=== PATIENT | male | born 2000 | race Caucasian/White ===

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

== ENCOUNTER 2018-05-31 04:33 | Emergency (ER) | payer OTHER ==
[~2018-05-31] VITALS: Wt 71.0 kg
[~2018-05-31 04:33] MED LIST: LEVE250T66 PO
[2018-05-31] MEDS ORDERED: LEVETIRACETAM 1000 MG (PMX) 100 ML IVPB STA (04:57)
[2018-05-31] MEDS ORDERED: LEVE750T70 PO (05:01)
--- NOTE | 2018-05-31 05:01 | ERD ---
ER Documentation Chief Complaint Chief Complaint bib ra from home for seizure for 2 min, left side head impact, witnessed, HPI This is a 18-year-old male who is had his third seizure and is not taking any medication. He was supposed to be but is not. The patient had a witnessed seizure today by a friend at home just prior to arrival. The patient was found on the floor. The patient had rolled out of bed and had a 2-minute tonic seizure. After the seizure the patient was postictal. The patient says he remembers going to bed and then waking up in the ambulance. Denies any symptoms at this time such as headache neck pain shoulder pain back pain or focal neurological complaints. Patient states he has been under a lot of stress lately and only slept a few hours last night ROS All systems reviewed and are negative except as per history of present illness. Medications Home Meds Active Scripts Levetiracetam* (Keppra*) 250 Mg Tab, 250 MG PO BID, #60 TAB Prov:DUONG SCHOFIELD MD 01/31/17 Allergies Allergies: Coded Allergies: No Known Allergy (Unverified , 01/31/17) PMhx/Soc Hx Alcohol Use: No Hx Substance Use: No Hx Tobacco Use: No FmHx Family History: No coronary disease Physical Exam Vitals Vital Signs Date Temp Pulse Resp B/P (MAP) Pulse Ox O2 O2 Flow FiO2 Time Delivery Rate 05/31/18 98.0 72 19 110/66 100 04:44 (81) Physical Exam Const: Well-developed, well-nourished Head: Left frontal contusion, normocephalic] Eyes: Normal Conjunctiva, PERRLA, EOMI, normal sclera, no nystagmus ENT: Normal External Ears, Nose and Mouth, moist mucus membranes. Neck: Full range of motion. No meningismus, no lymphadenopathy. Resp: Clear to auscultation bilaterally, no wheezing, rhonchi, rales Cardio: Regular rate and rhythm, no murmurs, S1 S2 present Abd: Soft, non tender x 4, non distended. Normal bowel sounds, no guarding or rebound, no pulsitile abdominal masses or bruits Skin: No petechiae or rashes, no ecchymosis , no maculopapular rash Back: No midline or flank tenderness Ext: No cyanosis, or edema, FROM x 4, normal inspection, neurovascularly intact x 4 Neur: Awake and alert, STR 5/5 x 4, sensation intact x 4, no focal findings, cerebellum intact Psych: Normal Mood and Affect Procedures/MDM The patient will get a CT scan of the head and if negative will go home. Will load him with IV Keppra 1000 mg. And will discharge home with Keppra 750 mg twice daily. Patient is supposed to be taken seizure medications but has not been. His seizure is likely due to a lower threshold due to stress and no sleep Departure Diagnosis: Primary Impression: Seizure disorder Condition: Stable LEAH DUDLEY DO May 31, 2018 05:01
[2018-05-31 07:45] VITALS: BP 100/49; PULSE 78; RESP 16
== END 2018-05-31 07:45 | disposition home or self-care (01) ==
LOC: E/R 04:33
DX: G40.909 Epilepsy, unspecified, not intractable, without status epilepticus (principal); S00.83XA Contusion of other part of head, initial encounter; X58.XXXA Exposure to other specified factors, initial encounter; Y92.009 Unspecified place in unspecified non-institutional (private) residence as the place of occurrence of the external cause
CPT/HCPCS: 70450; 96374; J1953; Z7502